=== PATIENT | male | born 1955 | race Hispanic/Latino ===

== ENCOUNTER 2022-05-11 16:42 | Emergency (ER) | payer OTHER ==
[~2022-05-11 16:42] MED LIST: Iopamidol 370 76% 100 ML VIAL ONE
[2022-05-11 17:40] LABS: #Basophils 0.1 10x3/uL (0.0-0.2); #Eosinphils 0.5 10x3/uL (0.0-0.5); #Monocytes 0.9 10x3/uL (0.0-1.1); #Neutrophils 4.3 10x3/uL (1.5-8.4); %Basophils 1.1 % (0.0-2.0); %Eosinophils 6.7 % (0.0-6.0); %Lymphocytes 18.9 % (18.0-47.0); %Monocytes 12.6 % (0.0-10.0); %Neutrophils 60.4 % (40.0-75.0); Hemoglobin 10.6 g/dL (13.5-17.5); Mean Corpuscular HGB CONC 34.4 g/dL (32.0-36.0); Mean Corpuscular Volume 90.1 fl (81.2-95.1); Mean Platelet Volume 10.4 fl (7.4-10.4); Platelet Count 307 10x3/uL (150-450); RBC Distribution Width 20.8 % (11.5-14.5); Red Blood Cell (RBC) Count 3.42 10x6/uL (4.32-5.72); White Blood Cell (WBC) Count 7.1 10x3/uL (3.5-10.5)
[2022-05-11 17:46] LABS: ALT (SGPT) 76 U/L (8-55); AST (SGOT) 158 U/L (5-34); Albumin 2.6 g/dL (3.4-4.8); Alkaline Phosphatase 229 U/L (40-110); Anion Gap 13 mmol/L (10-20); BUN (Urea Nitrogen) 14 mg/dL (8.4-25.7); Bilirubin, Total 5.2 mg/dL (0.2-1.2); Calc. Creatinine Clearance 0 mL/min (70-130); Calcium 8.4 mg/dL (7.8-10.44); Carbon Dioxide 25 mmol/L (23-31); Chloride 102 mmol/L (98-107); Estimated GFR 95; Globulin 5.7 g/dL (2.4-3.5); Glucose 122 mg/dL (80-115); Lipase 51 U/L (8-78); Potassium 4.1 mmol/L (3.5-5.1); Protein, Total 8.3 g/dL (5.8-8.1); Sodium 136 mmol/L (136-145)
[2022-05-11] MEDS ORDERED: Morphine 4 MG/ML VIAL ONE (17:48)
[2022-05-11] MEDS ORDERED: Ondansetron PF 4 MG/2 ML Vial ONE (17:48)
[2022-05-11 18:11] LABS: INR-International Normal Ratio 1.2
[2022-05-11 20:00] LABS: SARS-CoV-2 NAA Rapid Test Not Detected (NotDetected)
== END 2022-05-12 00:26 | disposition short-term general hospital (02) ==
LOC: CSHERS 16:42
DX: R07.9 Chest pain, unspecified (principal); I26.99 Other pulmonary embolism without acute cor pulmonale; C22.9 Malignant neoplasm of liver, not specified as primary or secondary; I25.10 Atherosclerotic heart disease of native coronary artery without angina pectoris; Z20.822 Contact with and (suspected) exposure to COVID-19
CPT/HCPCS: 36415; 71045; 71275; 74177; 80053; 83605; 83690; 84484; 85025; 85610; 85730; 87040; 93005; 96374; 96375; J2270; J2405; Q9967; U0002